=== PATIENT | male | born 1990 | race Caucasian/White ===

== ENCOUNTER 2019-03-21 09:14 | Emergency (ER) | payer OTHER ==
[~2019-03-21] VITALS: Ht 190.5 cm; Wt 68.0 kg
[2019-03-21 09:20] VITALS: Ht 190.5 cm; Wt 68.0 kg
[2019-03-21 10:50] LABS: microscopic required? NO
[2019-03-21 10:59] LABS: UA SPECIFIC GRAVITY <=1.005 (1.005-1.035); urine erythrocyte NEGATIVE (NEGATIVE)
[2019-03-21 12:39] LABS: BASOPHIL % 0.5 % (0-2); PLATELET COUNT 224 x10^3mcL (130-400); RED CELL DISTRIBUTION WIDTH 13.2 % (11.5-14.5)
[2019-03-21 13:01] VITALS: BP 123/68
== END 2019-03-21 13:01 | disposition home or self-care (01) ==
LOC: ED 09:14
PROVIDERS: Emergency Medicine
DX: S30.1XXA Contusion of abdominal wall, initial encounter (principal); S30.0XXA Contusion of lower back and pelvis, initial encounter; Z88.0 Allergy status to penicillin; Z90.89 Acquired absence of other organs; V68.5XXA Driver of heavy transport vehicle injured in noncollision transport accident in traffic accident, initial encounter; Y93.I9 Activity, other involving external motion; Y92.488 Other paved roadways as the place of occurrence of the external cause; Y99.8 Other external cause status
CPT/HCPCS: J1885; J3010; J7030; Q9967